=== PATIENT | female | born 2005 | race Caucasian/White ===

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

== ENCOUNTER → 2024-02-02 13:41 | Outpatient (BNVA) | payer MEDICAID, SELFPAY | PROVIDERS: Visit Provider Nurse Practitioner | DX: Z34.90 Encounter for supervision of normal pregnancy, unspecified, unspecified trimester (principal); R42 Dizziness and giddiness | CPT/HCPCS: 85018 ==

== ENCOUNTER 2024-03-18 12:05 | Emergency (ER) | payer MEDICAID, SELFPAY ==
[2024-03-18 12:21] VITALS: BP 136/63; PULSE 102; RESP 21; TEMP 36.6; O2SAT 99; BMI 25.6
--- NOTE | 2024-03-18 12:23 | USR_ITS ---
PROCEDURE INFORMATION: Exam: US , Limited Exam date and time: 03/18/2024 12:49 PM Age: 18 years old Clinical indication: complicated by abdominal or pelvic pain; Generalized abdominal pain; Second trimester (14 weeks 0 days to 27 weeks 6 days); Gestational age or lmp: 18 w 6d; ; Additional info: Syncope, abdominal pain LABS AND CLINICAL REPORTS: Gestational age (Established): 18 w 6 d Estimated due date (Established): 08/13/2024 TECHNIQUE: Imaging protocol: Real-time ultrasound of the maternal uterus with image documentation. Exam focused on the clinical indication. COMPARISON: No relevant prior studies available. FINDINGS: Gestation: Single living intrauterine gestation. heart rate is 145 BPM. Variable presentation. Anterior placenta. Normal amniotic fluid volume heart rate: 145 bpm clinical gestational age 18 weeks 6 days ROD 08/13/2024. A complete anatomic survey was not performed. The visible anatomy is unremarkable. MATERNAL: Cervix: Cervical length measures 3.4 cm. There is fluid in the cervical canal measuring 3 mm in diameter. US/US OB limited [address] IMPRESSION: 1. Single living intrauterine gestation 2. Clinical gestational age 18 weeks 6 days ROD 08/13/2024 3. Normal amniotic fluid volume. 4. Anterior placenta no previa 5. Fluid within the cervical canal .
--- NOTE | 2024-03-18 12:39 | ECG_ITS ---
[facility]24[facility]18 Pat Name: Adriana Lennon Department: Room: Gender: Female Senior Technical Writer: : 2005 Requested By: Nathalia Sky Order Number: [id number] Torres MD: Maria Holley M.D. Measurements Intervals [place] Rate: 91 P: 63 VT: 117 QRS: 72 QRSD: 76 T: 31 QT: 342 QTc: 421 Interpretive Statements SINUS RHYTHM WITH SINUS ARRHYTHMIA WITH SHORT VT INTERVAL Compared to ECG 07/01/2023 10:12:57 Sinus tachycardia no longer present Electronically Signed On 03-18-2024 15:53:27 X RAY NURSE by Maria Holley M.D. [id number]
[2024-03-18 12:49] LABS: Bilirubin Urine Negative (Negative); Blood Urine Negative (Negative); Glucose Urine UA Negative (Normal); Ketones Urine Negative (Negative); Leukocyte Esterase Urine Negative (Negative); Nitrate Urine Negative (Negative); Protein Urine Negative (Negative); Specific Gravity, Urine 1.008 (1.005-1.030); Urine Appearance Clear (CLEAR); Urine Color Yellow (Yellow); pH Urine 7.5 (5-7)
[2024-03-18 12:51] LABS: Bacteria Urine None Seen /hpf; Hyaline Casts Urine 1.65 /lpf; RBC Urine 0-2 /hpf (0-2); Squamous Epithelial Cell Urine 0-5 /hpf (0-5)
[2024-03-18 12:53] LABS: Basophils % 0.2 %; Eosinophils # 0.1 10^3/uL (0.0-0.8); Eosinophils % 0.5 %; Lymphocytes # 1.8 10^3/uL (1.5-6.5); Lymphocytes % 18.1 %; Mean Corpuscular HGB Conc 35.1 g/dL (30-55); Mean Corpuscular Hemoglobin 31.1 pg (27-33); Mean Corpuscular Volume 88.6 fl (85-98); Mean Platelet Volume 10.7 fL (7.4-10.4); Monocytes # 0.6 10^3/uL (0.2-0.9); Neutrophils # 7.29 10^3/uL (1.8-8.0); Neutrophils % 74.9 %; Nucleated Red Blood Cells % 0 %; Platelet Count 152 10^3/cmm (157-399); Red Cell Distribution Width 12.7 % (12.1-15.1); White Blood Count 9.73 10^3/uL (4.5-13.0)
[2024-03-18 12:55] LABS: Glucose Point of Care 90 mg/dL (70-110)
[2024-03-18 13:11] LABS: Alanine Aminotransferase 9 U/L (0-33); Albumin Level 3.9 g/dL (3.5-5.2); Alkaline Phosphatase 75 U/L (35-105); Anion Gap 12.9 (5-19); Aspartate Amino Transferase 15 U/L (0-32); Blood Urea Nitrogen 4 mg/dL (6-20); Calcium 8.4 mg/dL (8.5-10.5); Carbon Dioxide 23 mmol/L (22-29); Chloride 102 mmol/L (98-107); Creatinine Clr Calc Pharmacy 264.0826; Globulin 2.6 g/dL (1.3-4.6); Glomerular Filtration Rate 286.6 mL/min (90-130); Glucose 81 mg/dL (65-115); Osmolality Calculated 274 mOsm/kg (285-295); Potassium 3.9 mmol/L (3.5-5.1); Sodium 134 mmol/L (136-145); Total Bilirubin 0.3 mg/dL (0.15-1.2); Total Protein 6.5 g/dL (6.6-8.7)
--- NOTE | 2024-03-18 13:27 | ED_ITS ---
HPI - Syncope 2 General: Chief Complaint: Syncope Stated Complaint: 18 wks preg, passed out, headache Time Seen by Provider: 03/18/24 12:19 History of Present Illness: 18-year-old female who is approximately 18 weeks who presents to the emergency room after having a syncopal episode at work. She works at [employer] and she says she started to feel hot and then lightheaded. She sat down in a chair. There was others around. She says the next thing she remembers she woke up with her head in the chair and her body on the ground. She says she still has a bit of a headache at this point. No nausea or vomiting. She says she has some upper abdominal pain. No vaginal discharge. No vaginal bleeding. No change in movements. No fevers. No chest pain. No shortness of breath. No dysuria. Related Data Previous Rx's Medication Instructions Recorded mv-mn no.97-folic 180 mcg-dha 25 1 tab PO DAILY #90 tabs 12/20/23 mg-herb no.293 25 mg chewable tablet (Alive Daily Support ) mv-mn no.97-folic 180 mcg-dha 25 1 tab PO DAILY #90 tabs 12/28/23 mg-herb no.293 25 mg chewable tablet (Alive Daily Support ) Allergies Allergy/AdvReac Type Severity Reaction Status Date / Time No Known Allergies Allergy Verified 03/18/24 12:30 Review of Systems 2 Narrative: Constitutional symptoms: Negative except as documented in HPI. Skin symptoms: Negative except as documented in HPI. Eye symptoms: Negative except as documented in HPI. ENMT symptoms: Negative except as documented in HPI. Respiratory symptoms: Negative except as documented in HPI. Cardiovascular symptoms: Negative except as documented in HPI. Gastrointestinal symptoms: Negative except as documented in HPI. Genitourinary symptoms: Negative except as documented in HPI. Musculoskeletal symptoms: Negative except as documented in HPI. Neurologic symptoms: Negative except as documented in HPI. Psychiatric symptoms: Negative except as documented in HPI. Endocrine symptoms: Negative except as documented in HPI. PFSH ED 2 PFSH: Medical History Psychiatric care Social History Smoking and tobacco/nicotine status: never used tobacco/nicotine Physical Exam 2 Narrative: EXAM NARRATIVE: General: Alert, no acute distress. Skin: Warm, dry. Head: Normocephalic, atraumatic. Neck: Supple, trachea midline. Eye: Extraocular movements are intact. Ears, nose, mouth and throat: mucosa moist. Cardiovascular: Regular, Normal peripheral perfusion. Respiratory: Lungs are clear to auscultation, respirations are non-labored, breath sounds are equal, Symmetrical chest wall expansion. Gastrointestinal: Soft, gravid, no focal tenderness. Non distended Musculoskeletal: Normal ROM, no deformity. Neurological: Alert and oriented, No focal neurological deficit observed. Psychiatric: Cooperative, appropriate mood & affect. Course 2 Vital Signs: Vital signs: Vital Signs Temperature 97.9 F 03/18/24 12:21 Pulse Rate 102 H 03/18/24 12:21 Respiratory Rate 21 H 03/18/24 12:21 Blood Pressure 136/63 03/18/24 12:21 Pulse Oximetry 99 03/18/24 12:21 Oxygen Delivery Me thod Room Air 03/18/24 12:21 MDM - Syncope Medical Decision Making Medical decision making: Differential diagnosis including but not limited to and based on the above HPI, review of systems and physical exam: In this patient with syncope in we will check for cardiac dysrhythmias. Infection such as UTI. Rule out renal failure. Anemia. Also with some abdominal pain we will get a ultrasound to assure no complications with her . Orders placed to evaluate differential diagnosis based on the above differential, HPI and physical exam EKG: Time 1239. Rate 91. Normal sinus rhythm, No ST-T changes, no ectopy, normal TX & QRS intervals, This was reviewed and interpreted by myself the ER physician at 1245. Lab Review: Laboratory results were reviewed and interpreted by myself the emergency room physician. No leukocytosis. No anemia. No renal failure. Urine is clear. Ultrasound OB greater than 14 weeks: There is a slight opening of the cervix. Breech presentation. Placenta anterior. heart tones are present and 145. This was reviewed and interpreted by myself the emergency room physician. I also reviewed the radiology report. I reviewed the patient's medical record. Reexamination: Patient remained stable. No increased work of breathing. No altered mental status. No focal motor deficits. Assessment and plan: Syncope 18 weeks - Discharged home - Discussed plan with patient. Answered any questions. - Evaluation and treatment of this problem were appropriate in the emergency setting. Lab Data 03/18/24 11:34 03/18/24 11:34 Radiology Impressions Obstetrics Ultrasound 03/18/24 12:23 IMPRESSION: 1. Single living intrauterine gestation 2. Clinical gestational age 18 weeks 6 days ROD 08/13/2024 3. Normal amniotic fluid volume. 4. Anterior placenta no previa 5. Fluid within the cervical canal . Laboratory Results WBC 9.73 10^3/uL (4.5-13.0) 03/18/24 11:34 RBC 4.40 10^6/uL (3.85-5.65) 03/18/24 11:34 Hgb 13.70 g/dL (12.4-14.8) 03/18/24 11:34 Hct 39.0 % (36-47) 03/18/24 11:34 MCV 88.6 fl (85-98) 03/18/24 11:34 MCH 31.1 pg (27-33) 03/18/24 11:34 MCHC 35.1 g/dL (30-55) 03/18/24 11:34 RDW 12.7 % (12.1-15.1) 03/18/24 11:34 Plt Count 152 10^3/cmm (157-399) L 03/18/24 11:34 MPV 10.7 fL (7.4-10.4) H 03/18/24 11:34 Neut % (Auto) 74.9 % 03/18/24 11:34 Lymph % (Auto) 18.1 % 03/18/24 11:34 [place] % (Auto) 6.0 % 03/18/24 11:34 Eos % (Auto) 0.5 % 03/18/24 11:34 Baso % (Auto) 0.2 % 03/18/24 11:34 Neut # (Auto) 7.29 10^3/uL (1.8-8.0) 03/18/24 11:34 Lymph # (Auto) 1.8 10^3/uL (1.5-6.5) 03/18/24 11:34 [place] # (Auto) 0.6 10^3/uL (0.2-0.9) 03/18/24 11:34 Eos # (Auto) 0.1 10^3/uL (0.0-0.8) 03/18/24 11:34 Baso # (Auto) 0.0 10^3/uL (0.0-0.1) 03/18/24 11:34 Nucleated RBC % (auto) 0 % 03/18/24 11:34 Nucleated RBCs # 0.0 /100WBC 03/18/24 11:34 Sodium 134 mmol/L (136-145) L 03/18/24 11:34 Potassium 3.9 mmol/L (3.5-5.1) 03/18/24 11:34 Chloride 102 mmol/L (98-107) 03/18/24 11:34 Carbon Dioxide 23 mmol/L (22-29) 03/18/24 11:34 Anion Gap 12.9 (5-19) 03/18/24 11:34 BUN 4 mg/dL (6-20) L 03/18/24 11:34 Creatinine 0.3 mg/dL (0.5-0.9) L 03/18/24 11:34 GFR Calculation 286.6 mL/min (90-130) H 03/18/24 11:34 Glucose 81 mg/dL (65-115) 03/18/24 11:34 POC Glucose 90 mg/dL (70-110) 03/18/24 12:37 Calculated Osmolality 274 mOsm/kg (285-295) L 03/18/24 11:34 Calcium 8.4 mg/dL (8.5-10.5) L 03/18/24 11:34 Total Bilirubin 0.3 mg/dL (0.15-1.2) 03/18/24 11:34 AST 15 U/L (0-32) 03/18/24 11:34 ALT 9 U/L (0-33) 03/18/24 11:34 Alkaline Phosphatase 75 U/L (35-105) 03/18/24 11:34 Total Protein 6.5 g/dL (6.6-8.7) L 03/18/24 11:34 Albumin 3.9 g/dL (3.5-5.2) 03/18/24 11:34 Globulin 2.6 g/dL (1.3-4.6) 03/18/24 11:34 Urine Color Yellow (Yellow) 03/18/24 12:32 Urine Appearance Clear (CLEAR) 03/18/24 12:32 Urine pH 7.5 (5-7) 03/18/24 12:32 Ur Specific [place] 1.008 (1.005-1.030) 03/18/24 12:32 Urine Protein Negative (Negative) 03/18/24 12:32 Urine Glucose (UA) Negative (Normal) 03/18/24 12:32 Urine Ketones Negative (Negative) 03/18/24 12:32 Urine Blood Negative (Negative) 03/18/24 12:32 Urine Nitrate Negative (Negative) 03/18/24 12:32 Urine Bilirubin Negative (Negative) 03/18/24 12:32 Urine Urobilinogen 1.0 mg/dL (Negative) 03/18/24 12:32 Ur Leukocyte Esterase Negative (Negative) 03/18/24 12:32 Urine RBC 0-2 /hpf (0-2) 03/18/24 12:32 Urine WBC 6-10 /hpf (0-5) 03/18/24 12:32 Ur Squamous Epith Cells 0-5 /hpf (0-5) 03/18/24 12:32 Amorphous Sediment Not Reportable 03/18/24 12:32 Urine Bacteria None seen /hpf (NONE) 03/18/24 12:32 Hyaline Casts 1.65 /lpf 03/18/24 12:32 Coronavirus (PCR) Negative (Negative) 03/18/24 12:32 Influenza A (PCR) Negative (Negative) 03/18/24 12:32 Influenza Type B (PCR) Negative (Negative) 03/18/24 12:32 RSV (PCR) Negative (Negative) 03/18/24 12:32 All radiology interpretation(s) finalized by discharge Discharge Plan Discharge Patient Disposition: Home Clinical Impression: Syncope, Condition: Stable Prescriptions: No Action Alive Daily Support 180 mcg-25 mg- 25 mg tablet,chewable 1 tab PO DAILY Qty: 90 0RF Alive Daily Support 180 mcg-25 mg- 25 mg tablet,chewable 1 tab PO DAILY Qty: 90 2RF Rx Instructions: per package instructions Discharge Orders: Discharge ED (Routine); Ordered 03/18/24 Ordered By: Nathalia Stafford Discharge Diet: Usual diet Discharge Activity: Increase activity as tolerated Patient Instructions: Opioid Safety, Pain Management Activity Restrictions/Additional Instructions: Thank you for choosing [facility] for your healthcare needs today. Please realize this is an emergency room and that we are providing you with a medical screening exam and this may not be complete and all inclusive of all the testing and or work up that you may need to determine your ailment or severity of your illness. You have been screened and evaluated and felt safe for discharge. Health conditions do change or evolve sometimes and as such it is important that you follow up with your Primary Doctor to be re checked, 3-5 days is a general good time frame for follow up. You are always welcome to return to the ED for re assessment if your symptoms are worsening or you have new concerns Coding Level of Care Code ED Agricultural Pilot for Aramis Madrigal
[2024-03-18 13:30] LABS: Covid PCR NEGATIVE (Negative); Influenza A NEGATIVE (Negative); Influenza B NEGATIVE (Negative); Respiratory Syncytial Virus Ce NEGATIVE (Negative)
[2024-03-18 14:28] VITALS: BP 121/71; PULSE 97; RESP 16; O2SAT 98
== END 2024-03-18 14:26 | disposition home or self-care (01) ==
PROVIDERS: Emergency Provider Emergency Medicine
DX: R55 Syncope and collapse (principal); Z3A.18 18 weeks gestation of pregnancy; Z11.52 Encounter for screening for COVID-19
CPT/HCPCS: 0241U; 36416; 76815; 80053; 81001; 82962; 85025; 93005; 99284

== ENCOUNTER → 2024-04-17 16:15 | Outpatient (BNVA) | payer MEDICAID, SELFPAY | PROVIDERS: Visit Provider Nurse Practitioner | DX: R50.9 Fever, unspecified (principal) | CPT/HCPCS: 87400; 87426 ==

== ENCOUNTER → 2024-12-19 14:02 | Outpatient (BNVA) | payer MEDICAID, SELFPAY | PROVIDERS: Visit Provider Nurse Practitioner | DX: N92.6 Irregular menstruation, unspecified (principal) | CPT/HCPCS: 81025 ==